=== PATIENT | female | born 1985 | race African-American/Black ===

== ENCOUNTER 2022-08-28 16:45 | Observation (INO) | payer BC, SELFPAY ==
[2022-08-28] VITALS (28 sets, daily range): BP systolic 174–241; BP diastolic 114–147; PULSE 79–102; RESP 10–38; O2SAT 95–100
--- NOTE | ~2022-08-28 | CT_ITS ---
EXAMINATION: CT brain wo con DATE: 08/28/2022 17:48 INDICATION: HTN, intermittent HAs . TECHNIQUE: Computed tomography (CT) of the head was performed without intravenous contrast. The mA wa s adjusted according to patient size. Iterative reconstruction technique was employed. The dose-lengt h product was 681.00 mGy-cm. COMPARISON: None. FINDINGS: No acute intracranial hemorrhage or extra-axial fluid collection. No hydrocephalus, mass, or herniation. No acute ischemic infarct. Unremarkable dural venous sinus attenuation. No acute osseous abnormality. The aerated spaces are clear. IMPRESSION: No acute intracranial process. Reviewed, dictated and finalized at location K. CIATE PASTOR
--- NOTE | ~2022-08-28 | CT_ITS ---
EXAMINATION: CTA chest PE protocol DATE: 08/28/2022 19:49 INDICATION: SOB with exertion X 3w, +dimer TECHNIQUE: Computed tomography angiography (CTA) of the chest was performed with 100 mL Omnipaque-350 intravenous contrast timed to evaluate the pulmonary arteries. Coronal maximum intensity projection 3D-reconstructions were created by the technologist. The dose-length product (DLP) was 956.04 mGy-cm. Automated exposure control and iterative reconstruction technique were employed. COMPARISON: X-ray chest, same date. FINDINGS: Lung parenchyma and airways: Graded dependent groundglass opacities bilaterally in the lungs. Mosaic attenuation in the bilateral lower lobes. Pleura: Unremarkable. Thoracic inlet, axillae and chest wall: Unremarkable. Thoracic aorta: Normal. Mediastinum: Normal. Heart and pericardium: Cardiomegaly. Coronary artery calcifications: Absent. Upper abdomen: No significant finding. Bones: No acute osseous finding. Pulmonary arteries: Study quality: Severe quantum mottle, beam hardening, and motion artifact signifi cantly limits the study. No central pulmonary emboli detected. IMPRESSION: 1. Limited examination, such that segmental emboli could be missed. No central pulmonary emboli detec lowell. 2. Pulmonary opacities may represent a combination of mild pulmonary edema and mosaic attenuation. Th e latter can be seen with asthma, bronchiolitis obliterans, hypersensitivity pneumonitis, and chronic thromboembolic disease. Reviewed, dictated and finalized at location K. NING DEVELOPMENT SPECIALIST IMPRESSION: 1. Limited examination, such that segmental emboli could be missed. No central pulmonary emboli detected. 2. Pulmonary opacities may represent a combination of mild pulmonary edema and mosaic attenuation. The latter can be seen with asthma, bronchiolitis obliteran s, hypersensitivity pneumonitis, and chronic thromboembolic disease.
--- NOTE | ~2022-08-28 | XR_ITS ---
EXAMINATION: XR chest 2V Exam Date/Time: 08/28/2022 18:50 GENERAL II FARMWORKER HISTORY: HTN, HODGES X 3 weeks Comparison: None available. RESULT: Lines, tubes, and devices: None. Lungs and pleura: Low volumes with crowding. Severely Limited lateral view. Cardiomediastinal silhouette: Marked cardiomegaly. Other: No acute osseous or upper abdominal finding. IMPRESSION: Nondiagnostic lateral view. Cardiomegaly. Reviewed, dictated and finalized at location K. RAL II FARMWORKER
--- NOTE | 2022-08-28 17:03 | ECG_ITS ---
Measurements Intervals [place] Rate: 97 P: 40 NV: 192 QRS: -2 QRSD: 101 T: 117 QT: 347 QTc: 442 Interpretive Statements SINUS RHYTHM POSSIBLE LEFT ATRIAL ENLARGEMENT [-0.1mV P-WAVE IN V1/V2] LEFT VENTRICULAR HYPERTROPHY AND ST-T CHANGE [VOLTAGE CRITERIA PLUS ST/T ABNORMALITY] NO PREVIOUS ECG AVAILABLE FOR COMPARISON Electronically Signed On 08-28-2022 19:50:08 UNDER PRESSER by Lisette Lange M.D.
--- NOTE | 2022-08-28 17:03 | ED.GENADULT ---
HPI - General Adult General Chief complaint: Recheck/Abnormal Lab/Rx <BESSY Harrison Last Filed: 08/28/22 23:32> Stated complaint: hypertension crisis <BESSY Harrison Last Filed: 08/28/22 23:32> Time Seen by Provider: 08/28/22 16:58 <BESSY Harrison Last Filed: 08/28/22 23:32> Source: patient <BESSY Harrison Last Filed: 08/28/22 23:32> Mode of arrival: ambulatory <BESSY Harrison Last Filed: 08/28/22 23:32> Limitations: no limitations <BESSY Harrison Last Filed: 08/28/22 23:32> History of Present Illness HPI narrative: Patient is a 37 y/o female who presents to the ED with c/o HTN. Patient reports she has had intermittent headaches and dyspnea with exertion over the last few weeks. She states the shortness of breath seems to be an acute change and she was unable to walk distances she used to be able to without becoming short of breath. She has been under a lot of increased stress recently. She made an appointment with her PCP today at which point her blood pressure was noted to be significantly elevated in the office. She was then referred to the ED for further evaluation. Patient does report a history of HTN and states she was on a water pill and another medication in the past, but she has not taken these over the last 3 months. She states she ran out and was stubborn. Per patient's med rec, patient has been on amlodipine, metoprolol, triamterene/hydrochlorothiazide previously. Patient also reports having intermittent mild lower extremity edema, denies any vision changes, dizziness, lightheadedness, chest pain, abdominal pain, nausea, vomiting, focal weakness, numbness, cough or cold symptoms. <BESSY Harrison Last Filed: 08/28/22 23:32> Related Data Allergies/adverse reactions: Allergies Allergy/AdvReac Type Severity Reaction Status Date / Time cat dander Allergy Other Verified 08/29/22 01:17 <Pia Luna PA-C - Last Filed: 08/28/22 23:32> Review of Systems Review of Systems: CONSTITUTIONAL: Denies fever, chills, or sweats. EYES: Denies visual changes. ENT: Denies rhinorrhea, congestion, sore throat. CARDIOVASCULAR: See HPI. RESPIRATORY: See HPI. GASTROINTESTINAL: Denies abdominal pain, nausea, vomiting, or diarrhea. GENITOURINARY: Denies dysuria or hematuria. NEUROLOGIC: See HPI. <Pia Luna PA-C - Last Filed: 08/28/22 23:32> All systems reviewed & are unremarkable except as noted in HPI and below <Pia Luna PA-C - Last Filed: 08/28/22 23:32> [facility] Past Medical History Medical History: Medical History Benign essential HTN Morbid (severe) obesity due to excess calories PIH ( induced hypertension) Weight gain <Pia Luna PA-C - Last Filed: 08/28/22 23:32> Surgical History Surgical History: Surgical History Hx of section <Pia Luna PA-C - Last Filed: 08/28/22 23:32> Family History Family History: Family History Grandparent Family history of elevated blood lipids Family history of type 2 diabetes mellitus Hypertension Heart attack Mother Heart disease [place] Hypertension Heart attack Type 1 diabetes Father Kidney failure History of kidney transplant Hypertension <Pia Luna PA-C - Last Filed: 08/28/22 23:32> Social History Social History: Social History Social History: Single Smoking status: Never smoker Second hand tobacco smoke exposure: No Alcohol intake: current Alcohol use details: occasionally Substance use: never Substance use type: does not use Lack of Transportation: No Lack of Food: Never True Current Housing: I
[2022-08-28 17:55] LABS: Basophils Percent Auto 0.3 % (0.2-1.2); Eosinophils Absolute Auto 0.2 K/mm3 (0-0.3); Eosinophils Percent Auto 2.1 % (0-4.4); Hematocrit 35.4 % (37.0-47.0); Hemoglobin 10.8 g/dL (12.0-15.0); Immature Granulocyte Absolute 0.03 K/mm3 (0.00-0.031); Immature Granulocyte Percent A 0.3 % (0-0.5); Immature Platelet Fraction Pct 18.5 % (0.9-11.2); Lymphocytes Absolute Auto 3.29 K/mm3 (0.9-3.2); Lymphocytes Percent Auto 32.3 % (18.3-44.2); Mean Corpuscular HGB Conc 30.5 g/dl (32-36); Mean Corpuscular Hemoglobin 24.4 pg (26-34); Mean Corpuscular Volume 79.9 fl (80-100); Monocytes Absolute Auto 0.7 K/mm3 (0.1-0.6); Monocytes Percent Auto 6.5 % (2.6-8.5); Neutrophils Percent Auto 58.5 % (45.5-73.1); Platelet Count Result 182 k/mm3 (150-375); Red Blood Count 4.43 M/mm3 (4.2-5.4); Red Cell Distribution Width 17.4 % (11.5-14.5); White Blood Count 10.2 K/mm3 (4.5-10.0)
[2022-08-28 18:00] LABS: Appearance Urine Clear (Clear); Bilirubin Urine Negative (Negative); Blood Urine Negative (Negative); Color Urine Yellow (Yellow); Glucose Urine UA Negative (Negative); Ketones Urine Negative (Negative); Leukocyte Esterase Ur Negative LEU/UL (Negative); Nitrate Urine Negative (Negative); Protein Urine 3+ mg/dL (Negative); Urobilinogen Urine 0.2 mg/dL (<2.0)
[2022-08-28 18:02] LABS: Prothrombin Time 13.2 Seconds (11.1-14.7)
[2022-08-28 18:03] LABS: Partial Thromboplastin Time 29.6 SECONDS (22.3-36.8)
[2022-08-28 18:07] LABS: Bacteria Urine Trace /hpf; Squamous Epithelial Cell Urine Occasional /hpf (Few); WBC Urine 0-3 /hpf
[2022-08-28 18:08] LABS: Add Urine Microscopic? YES
[2022-08-28 18:14] LABS: Alanine Aminotransferase 20 U/L (6-35); Albumin Level 4.3 g/dL (3.5-5.1); Alkaline Phosphatase 63 U/L (38-126); Anion Gap 6 mmol/L (8-16); Aspartate Amino Transferase 26 U/L (14-36); Bilirubin,Total 0.7 mg/dL (0.2-1.3); Blood Urea Nitrogen 22 mg/dL (7-17); Calcium 8.9 mg/dL (8.4-10.2); Carbon Dioxide 32 mmol/L (22-30); Chloride 101 mmol/L (98-107); Estimated CRCL calculation 86 ml/min; Estimated Glomerular Filt Rate 56; Glucose 88 mg/dL (65-110); Sodium 139 mmol/L (137-145)
[2022-08-28 18:25] LABS: NT Pro B Type Natriuretic Pept 317 pg/mL (19.9-100); Platelet Estimate Adequate (Adequate); Schistocytes None Seen (NORMAL); Troponin I < 0.012 ng/mL (0.000-0.034)
[2022-08-28 18:26] LABS: Anisocytosis 2+ (NORMAL); Hypochromasia 1+ (NORMAL)
[2022-08-28 18:28] LABS: Influenza A QL RT-PCR Negative (Negative); Influenza B QL RT-PCR Negative (Negative); SARS-CoV-2 RNA PCR Negative
[2022-08-28] MEDS: hydrALAZINE HCL 20 MG/ML VIAL 10 MG IV PUSH ×2 (19:10→20:30)
[2022-08-28 19:21] LABS: D Dimer 0.78 ug/mL (<0.48)
--- NOTE | 2022-08-28 22:01 | PM.IMHP ---
H&P: HPI History of Present Illness Date/Time: 08/28/22 22:01 Chief Complaint: 37 years old female with past medical history of hypertension patient complains of shortness of breath worsening with activity started few weeks ago worsening gradually it is associated with headache intermittent patient was having her blood pressure uncontrolled for the past 2 weeks patient was started on amlodipine metoprolol and diuretics without improvement in blood pressure patient lately undergoing a lot of stress at the ER patient was found to have elevated BNP mildly hypokalemia elevated creatinine 1.3 hypertensive urgency associated with acute CHF exacerbation patient was started on IV diuretics potassium was replaced check magnesium patient will be admitted to the hospital for evaluation and treatment of hypertensive urgency acute renal failure acute hypokalemia acute CHF exacerbation Patient has significant family history of CHF her dad has CHF and ESRD patient dad was diagnosed with genetic kidney disease that lead to her that starting dialysis Review of Systems Review of Systems: 12 system review was done negative except above PMFSH Past Medical History Medical History Benign essential HTN Morbid (severe) obesity due to excess calories PIH ( induced hypertension) Weight gain Surgical History Surgical History Hx of section Family History Family History Grandparent Hypertension Family history of elevated blood lipids Family history of type 2 diabetes mellitus History of blood clots Breast cancer Mother Hypertension Family history of type 2 diabetes mellitus Heart disease CT Father Hypertension Kidney failure History of kidney transplant Social History Social History Social History: Single Smoking status: Never smoker Second hand tobacco smoke exposure: No Alcohol intake: current Alcohol use details: occasionally Substance use: never Substance use type: does not use Living arrangements: with family Occupation/Education: occupation Gender identity (if verbalized by the patient): Female Sexual Orientation (if Verbalized by the Patient): Straight or Heterosexual Meds Home Medications and Allergies Home Medications Medication Instructions Recorded Confirmed Type triamterene 37.5 1 tablet PO QAM #90 tabs 05/12/20 08/28/22 Rx mg-hydrochlorothiazide 25 mg tablet (Maxzide-25mg) amlodipine 10 mg tablet 10 mg PO DAILY #30 tabs 02/18/22 08/28/22 Rx metoprolol succinate 25 mg 25 mg PO DAILY #30 tabs 02/18/22 08/28/22 Rx tablet,extended release 24 hr Allergies Allergy/AdvReac Type Severity Reaction Status Date / Time No Known Allergies Allergy Unverified 08/28/22 16:00 Vital Signs Vital Signs - 24 hr 08/28/22 16:59 08/28/22 19:00 08/28/22 19:10 Pulse Rate 86 84 Respiratory Rate 20 28 H Blood Pressure 241/143 H 215/147 H Pulse Oximetry 95 99 Oxygen Delivery Room Air 08/28/22 19:13 08/28/22 19:15 08/28/22 19:30 Pulse Rate 83 81 86 Respiratory Rate 24 H 24 H 22 H Blood Pressure Pulse Oximetry 98 97 98 Oxygen Delivery 08/28/22 19:57 08/28/22 20:00 08/28/22 20:05 Pulse Rate 90 92 93 Respiratory Rate 18 25 H 23 H Blood Pressure 206/143 H Pulse Oximetry 99 Oxygen Delivery 08/28/22 20:15 08/28/22 20:30 08/28/22 20:31 Pulse Rate 93 95 86 Respiratory Rate 25 H 25 H 31 H Blood Pressure 233/131 H Pulse Oximetry 97 95 Oxygen Delivery 08/28/22 20:32 08/28/22 20:45 08/28/22 20:46 Pulse Rate 90 84 90 Respiratory Rate 27 H 25 H 23 H Blood Pressure 218/133 H 179/114 H Pulse Oximetry 97 Oxygen Delivery 08/28/22 21:00 Pulse Rate 87 Respiratory Rate 21 H Blood
[2022-08-28] MEDS: amLODIPine BESYLATE 5 MG TABLET 10 MG PO (22:54)
[2022-08-28] MEDS: carvediloL 12.5 MG TABLET PO (22:55)
[2022-08-29] VITALS (10 sets, daily range): BP systolic 136–186; BP diastolic 78–125; PULSE 71–97; RESP 14–26; TEMP 35.9–36.3; O2SAT 95–100; BMI 67.1
--- NOTE | 2022-08-29 00:27 | ADMGEN ---
This patient, Casi Perez, was admitted to 3 [facility] Surg Room 309-01. Patient/family oriented to hospital policies and general routines including ID bracelet, bed and alarms, visiting hours, pain management, procedures, bathroom and other care routines, personal items, smoking policy, room service/diet, and visiting hours. Information on how to activate the Rapid Response Team has been discussed. Patient/Family are encouraged to report perceived risks to care and to ask questions if they do not understand what they are told or what they should do.
[2022-08-29 00:34] LABS: Creatine Kinase 91 U/L (30-135)
[2022-08-29 00:47] LABS: Troponin I < 0.012 ng/mL (0.000-0.034)
[2022-08-29] MEDS: POTASSIUM CHLORIDE 20 MEQ TABLET 40 MEQ PO ×2 (00:49→04:10)
[2022-08-29 06:08] LABS: Basophils Percent Auto 0.3 % (0.2-1.2); Eosinophils Absolute Auto 0.1 K/mm3 (0-0.3); Eosinophils Percent Auto 1.2 % (0-4.4); Hematocrit 35.6 % (37.0-47.0); Hemoglobin 10.6 g/dL (12.0-15.0); Immature Granulocyte Absolute 0.03 K/mm3 (0.00-0.031); Immature Granulocyte Percent A 0.3 % (0-0.5); Immature Platelet Fraction Pct 17.7 % (0.9-11.2); Lymphocytes Absolute Auto 1.95 K/mm3 (0.9-3.2); Lymphocytes Percent Auto 20.1 % (18.3-44.2); Mean Corpuscular HGB Conc 29.8 g/dl (32-36); Mean Corpuscular Hemoglobin 24.3 pg (26-34); Mean Corpuscular Volume 81.5 fl (80-100); Mean Platelet Volume 12.7 fl (7.4-10.4); Monocytes Absolute Auto 0.6 K/mm3 (0.1-0.6); Monocytes Percent Auto 6.6 % (2.6-8.5); Neutrophils Absolute Auto 6.9 K/mm3 (1.3-6.7); Neutrophils Percent Auto 71.5 % (45.5-73.1); Platelet Count Result 202 k/mm3 (150-375); Red Blood Count 4.37 M/mm3 (4.2-5.4); Red Cell Distribution Width 17.5 % (11.5-14.5); White Blood Count 9.7 K/mm3 (4.5-10.0)
[2022-08-29 06:18] LABS: Alanine Aminotransferase 18 U/L (6-35); Albumin Level 4.1 g/dL (3.5-5.1); Alkaline Phosphatase 52 U/L (38-126); Anion Gap 4 mmol/L (8-16); Aspartate Amino Transferase 23 U/L (14-36); Bilirubin,Total 0.7 mg/dL (0.2-1.3); Blood Urea Nitrogen 17 mg/dL (7-17); Calcium 8.8 mg/dL (8.4-10.2); Carbon Dioxide 29 mmol/L (22-30); Chloride 100 mmol/L (98-107); Estimated CRCL calculation 93 ml/min; Estimated Glomerular Filt Rate > 60; Glucose 102 mg/dL (65-110); Potassium 3.4 mmol/L (3.4-5.0); Sodium 133 mmol/L (137-145)
[2022-08-29 06:29] LABS: Troponin I < 0.012 ng/mL (0.000-0.034)
[2022-08-29 06:44] LABS: Anisocytosis 1+ (NORMAL); Hypochromasia 1+ (NORMAL); Platelet Estimate Adequate (Adequate); Schistocytes None Seen (NORMAL)
[2022-08-29] MEDS: amLODIPine BESYLATE 5 MG TABLET 10 MG PO (09:24)
[2022-08-29] MEDS: FUROSEMIDE INJ 40 MG/4 ML VIAL IV PUSH ×2 (09:24→17:48)
[2022-08-29] MEDS: POTASSIUM CHLORIDE 20 MEQ TABLET.ER PO (09:24)
[2022-08-29] MEDS: FAMOTIDINE 20 MG TABLET PO ×2 (09:25→20:47)
[2022-08-29] MEDS: ENOXAPARIN 40 MG/0.4 ML SYRINGE SUB-Q (09:25)
[2022-08-29] MEDS: METOPROLOL SUCCINATE EXT REL 25 MG TABCR PO (09:25)
--- NOTE | 2022-08-29 11:26 | PM.CNCAR ---
Assessment and Plan Assessment and plan (1) Hypertensive urgency: Code(s): I16.0 - Hypertensive urgency Status: Acute (2) Uncontrolled hypertension: Code(s): I10 - Essential (primary) hypertension Status: Acute (3) General patient noncompliance: Code(s): Z91.19 - Patient's noncompliance with other medical treatment and regimen Status: Acute (4) BMI 60.0-69.9, adult: Code(s): Z68.44 - Body mass index [BMI] 60.0-69.9, adult Status: Acute (5) GERMAIN (acute kidney injury): Code(s): N17.9 - Acute kidney failure, unspecified Status: Acute Plan Continue with intermittent IV Lasix for now. Still needs BP control. Agree with Amlodipine 10mg QD. On beta-marco, however this is not a great choice for hypertension. I will stop it. Start Lisinopril and Aldactone. May see a slight SCr bump with this. Continue with PRN Hydralazine. TTE has been ordered, will follow up on results. History of Present Illness History of Present Illness Consult date/time: 08/29/22 11:26 Requesting physician: Nani Art M.A., MD Consult reason: hypertension Reason For Visit: Hypertensive Urgency,HODGES,Mild CHF Narrative: This is a 37-year-old female with a history of morbid obesity and hypertension who presented with dyspnea on exertion, intermittent headaches. Was seen at her PCP's office, where they noted blood pressure to be significantly high and then sent to the ED for further evaluation. Patient reports that she was out of her blood pressure medications for sometime and even when she did have them, she was noncompliant with them. ER workup showed GERMAIN with SCr of 1.3, now improved to 1.2 Troponins negative x 3. BNP 317. EKG with sinus rhythm with LVH with secondary repolarization abnormalities. Review of Systems Review of Systems: 12 point ROS obtained. Negative, unless stated in HPI. [facility] Past Medical History Medical History Benign essential HTN Morbid (severe) obesity due to excess calories PIH ( induced hypertension) Weight gain Surgical History Surgical History Hx of section Family History Family History Grandparent Family history of elevated blood lipids Family history of type 2 diabetes mellitus Hypertension Heart attack Mother Heart disease [place] Hypertension Heart attack Type 1 diabetes Father Kidney failure History of kidney transplant Hypertension Social History Social History Social History: Single Smoking status: Never smoker Second hand tobacco smoke exposure: No Alcohol intake: current Alcohol use details: occasionally Substance use: never Substance use type: does not use Lack of Transportation: No Lack of Food: Never True Current Housing: I Have Housing Concerned About Future Housing: No Difficulty Paying Gas/Electric Bills: No Difficulty Paying for Meds: No Currently Unemployed: No Education: Bachelor's Degree Difficulty w/ Childcare or Family Care: No Living arrangements: with family Occupation/Education: occupation Gender identity (if verbalized by the patient): Female Sexual Orientation (if Verbalized by the Patient): Straight or Heterosexual Spiritual care concerns: No Meds Home Medications and Allergies Home Medications Medication Instructions Recorded Confirmed Type triamterene 37.5 1 tablet PO QAM #90 tabs 05/12/20 08/29/22 Rx mg-hydrochlorothiazide 25 mg tablet (Maxzide-25mg) amlodipine 10 mg tablet 10 mg PO DAILY #30 tabs 02/18/22 08/29/22 Rx metoprolol succinate 25 mg 25 mg PO DAILY 08/29/22 08/29/22 History tablet,extended release 24 hr Allergies Allergy/AdvReac Type Severity Reaction Status Date / Time cat dander All
[2022-08-29] MEDS: lisinopriL 20 MG TABLET PO (12:44)
[2022-08-29] MEDS: SPIRONOLACTONE 12.5 MG TABLET PO (12:44)
--- NOTE | 2022-08-29 15:58 | P.PNIM_ITS ---
Progress Note: A&P Assessment and Plan (1) Hypertensive urgency: Code(s): I16.0 - Hypertensive urgency Status: Acute Assessment and Plan: blood pressure is markedly elevated up to 246/138 on presentation. * Patient reports noncompliance to her antihypertensive regimen * likely worsened due to volume overload * BP improving at appropriate rate. Last BP 177/117 * appreciate cardiology consultation * continue home amlodipine * home metoprolol succinate has been discontinued * has been started on lisinopril and spironolactone per Cardiology recommendations * continue with IV diuresis * hold home triamterene -hydrochlorothiazide while patient is on furosemide * monitor BP trends closely (2) Acute renal failure: Code(s): N17.9 - Acute kidney failure, unspecified Status: Acute Assessment and Plan: creatinine elevated to 1.3 on admission * may be due to uncontrolled hypertension/ hypertensive urgency * Creatinine down to 1.2 today continue to monitor * continue with cautious diuresis * monitor BMP * consider renal ultrasound if no improvement (3) Shortness of breath: Code(s): R06.02 - Shortness of breath Status: Acute Assessment and Plan: patient was shortness of breath and dyspnea on exertion for several weeks. * CTA revealed pulmonary opacities which is likely due to mild pulmonary edema and CXR shows cardiomegaly * BNP only 317, unremarkable * continue with IV furosemide at this time * echocardiogram completed today with results pending * troponin negative * shortness of breath is markedly improved today (4) Acute hypokalemia: Code(s): E87.6 - Hypokalemia Status: Acute Assessment and Plan: resolved. Potassium 3.4 today * likely due to diuresis * will be in scheduled potassium 20 mEq daily. Adjust as needed Subjective Date/time seen: 08/29/22 15:58 Interval history: date of service: 08/29/2022 Casi Perez is a 37-year-old female with a history of morbid obesity and uncontrolled hypertension who is seen in follow-up for hypertensive urgency and acute kidney injury. Patient states that she has had HODGES for several months. She does endorse shortness of breath today. She has been able to get up and ambulate to and from the restroom. She feels that shortness of breath is i mproved with this activity, though she still gets winded after completing the trip. She does have a mild headache but this has improved. She endorses sinus congestion. She denies pain in her chest. Denies palpitations. Feels her lower extremity swelling has nearly resolved. She endorses urinary frequency secondary to Lasix. Denies dysuria or hematuria. She has no additional concerns Review of Systems Review of Systems: All systems reviewed & are unremarkable except as noted in HPI and below Exam Narrative: General: obese, well-appearing 37-year-old female, sitting up in bed, comfortable, NARD Neuro: awake, alert and oriented x4, speech clear, no focal neuro deficits noted HEENMT: normocephalic, atraumatic, EOMI, sclerae anicteric, moist oral mucosa Respiratory: clear to auscultation bilaterally, nonlabored breathing Cardio: regular rate, regular rhythm with S1-S2 Abdomen: obese, normoactive bowel sounds, soft, nontender to palpation Extremities: trace edema, no erythema or tenderness to palpation, DP pulses 2+ bilaterally Skin: no rashes or lesions, warm and dry Psych: appropriate mood and affect, judgment and insight i
--- NOTE | 2022-08-29 15:58 | PM.IMPN ---
Progress Note: A&P Assessment and Plan (1) Hypertensive urgency: Code(s): I16.0 - Hypertensive urgency Status: Acute Assessment and Plan: blood pressure is markedly elevated up to 246/138 on presentation. Patient reports noncompliance to her antihypertensive regimen likely worsened due to volume overload BP improving at appropriate rate. Last BP 177/117 appreciate cardiology consultation continue home amlodipine home metoprolol succinate has been discontinued has been started on lisinopril and spironolactone per Cardiology recommendations continue with IV diuresis hold home triamterene -hydrochlorothiazide while patient is on furosemide monitor BP trends closely (2) Acute renal failure: Code(s): N17.9 - Acute kidney failure, unspecified Status: Acute Assessment and Plan: creatinine elevated to 1.3 on admission may be due to uncontrolled hypertension/ hypertensive urgency Creatinine down to 1.2 today continue to monitor continue with cautious diuresis monitor BMP consider renal ultrasound if no improvement (3) Shortness of breath: Code(s): R06.02 - Shortness of breath Status: Acute Assessment and Plan: patient was shortness of breath and dyspnea on exertion for several weeks. CTA revealed pulmonary opacities which is likely due to mild pulmonary edema and CXR shows cardiomegaly BNP only 317, unremarkable continue with IV furosemide at this time echocardiogram completed today with results pending troponin negative shortness of breath is markedly improved today (4) Acute hypokalemia: Code(s): E87.6 - Hypokalemia Status: Acute Assessment and Plan: resolved. Potassium 3.4 today likely due to diuresis will be in scheduled potassium 20 mEq daily. Adjust as needed Subjective Date/time seen: 08/29/22 15:58 Interval history: date of service: 08/29/2022 Casi Perez is a 37-year-old female with a history of morbid obesity and uncontrolled hypertension who is seen in follow-up for hypertensive urgency and acute kidney injury. Patient states that she has had HODGES for several months. She does endorse shortness of breath today. She has been able to get up and ambulate to and from the restroom. She feels that shortness of breath is improved with this activity, though she still gets winded after completing the trip. She does have a mild headache but this has improved. She endorses sinus congestion. She denies pain in her chest. Denies palpitations. Feels her lower extremity swelling has nearly resolved. She endorses urinary frequency secondary to Lasix. Denies dysuria or hematuria. She has no additional concerns Review of Systems Review of Systems: All systems reviewed & are unremarkable except as noted in HPI and below Exam Narrative: General: obese, well-appearing 37-year-old female, sitting up in bed, comfortable, NARD Neuro: awake, alert and oriented x4, speech clear, no focal neuro deficits noted HEENMT: normocephalic, atraumatic, EOMI, sclerae anicteric, moist oral mucosa Respiratory: clear to auscultation bilaterally, nonlabored breathing Cardio: regular rate, regular rhythm with S1-S2 Abdomen: obese, normoactive bowel sounds, soft, nontender to palpation Extremities: trace edema, no erythema or tenderness to palpation, DP pulses 2+ bilaterally Skin: no rashes or lesions, warm and dry Psych: appropriate mood and affect, judgment and insight intact Objective Data Vital Signs Vital Signs: Vital Signs - 24 hr 08/28/22 16:59 08/28/22 19:00 08/28/22 19:10 Temperature Pulse Rate 86 84 Respiratory Rate 20 28 H Blood Pressure 241/143 H 215/147 H Pulse Oximetry 95 99 Oxygen Delivery Room Air 08/28/22 19:13 08/28/22 19:15 08/28/22 19:30 Temperature Pulse Rate 83 81 86 Respiratory Rate 24 H 24 H 22 H Blood Pressure Pulse Oximetry 98 97
--- NOTE | 2022-08-29 21:58 | ECHO_ITS ---
Patient Info Name: Casi Perez Age: 37 years : 1985 Gender: Female Ht: 64 in Wt: 391 lbs BSA: 2.96 m2 HR: 79 bpm BP: 154 / 102 mmHg Heart Rhythm: Sinus Rhythm Technical Quality: Good Exam Date: 08/29/2022 10:44 AM Exam Location: [facility] Patient Status: Outpatient Admit Date: 08/28/2022 Staff Ordering Physician: Nani Art M.A., MD [employer] Operator: Buffy Dunn RDCS Attending Provider: Jaclyn Rivera PA-C Referring Physician: Chris SHEN; Exam Type: CA echo doppler color flow Study Info Indications R06.02 - Shortness of breath Complete two-dimensional, color flow and Doppler transthoracic echocardiogram is performed. Summary 1. Complete two-dimensional, color flow and Doppler transthoracic echocardiogram is performed. 2. Left ventricular chamber dimension is normal. 3. Left ventricular systolic function is normal, estimated at 55-60%. 4. There is severely increased left ventricular wall thickness. 5. The left ventricular diastolic function is grade II diastolic dysfunction. 6. Global longitudinal strain is abnormal at -10 %. 7. Right ventricular systolic function is normal. 8. Left atrial chamber dimension is moderately enlarged. 9. Right atrial chamber dimension is mildly enlarged. 10. There is mild mitral valve regurgitation. 11. There is trivial pericardial effusion. Left Ventricle Left ventricular chamber dimension is normal. Left ventricular systolic function is normal, estimated at 55-60%. There is severely increased left ventricular wall thickness. The left ventricular diastolic function is grade II diastolic dysfunction. Global longitudinal strain is abnormal at -10 %. Right Ventricle Right ventricular chamber dimension is normal. Right ventricular systolic function is normal. Left Atria Left atrial chamber dimension is moderately enlarged. Right Atria Right atrial chamber dimension is mildly enlarged. Atrial Septum Intact interatrial septum visualized by color flow imaging. Aortic Valve The aortic valve is not well visualized. There is no aortic valve stenosis. There is no aortic valve regurgitation. Pulmonic Valve The pulmonic valve is not well visualized. Mitral Valve The mitral valve has normal leaflets. There is no mitral valve stenosis. There is mild mitral valve regurgitation. Tricuspid Valve There is trace tricuspid valve regurgitation. Pericardium/Pleural There is trivial pericardial effusion. Aorta The aortic root size at the sinus of Valsalva is normal. Left Ventricular Outflow Tract Name Value Normal LVOT 2D LVOT Diameter 2.0 cm LVOT Doppler LVOT Peak Gradient 4 mmHg LVOT Mean Gradient 3 mmHg LVOT VTI 19 cm LVOT VTI/AV VTI Ratio 0.8 LVOT Stroke Volume 58 ml LVOT CO 4.4 l/min LVOT CI 1.5 l/min/m2 Pulmonic Valve
[2022-08-30] VITALS: PULSE 73
[2022-08-30 04:00] VITALS: PULSE 69
[2022-08-30 05:41] VITALS: BP 153/77; PULSE 66; RESP 14; TEMP 36.4; O2SAT 97
[2022-08-30 07:30] LABS: Basophils Percent Auto 0.4 % (0.2-1.2); Eosinophils Absolute Auto 0.2 K/mm3 (0-0.3); Eosinophils Percent Auto 2.4 % (0-4.4); Hemoglobin 10.5 g/dL (12.0-15.0); Immature Granulocyte Absolute 0.03 K/mm3 (0.00-0.031); Immature Granulocyte Percent A 0.4 % (0-0.5); Immature Platelet Fraction Pct 17.6 % (0.9-11.2); Lymphocytes Absolute Auto 1.99 K/mm3 (0.9-3.2); Mean Corpuscular Hemoglobin 23.9 pg (26-34); Mean Corpuscular Volume 79.5 fl (80-100); Monocytes Absolute Auto 0.6 K/mm3 (0.1-0.6); Monocytes Percent Auto 7.3 % (2.6-8.5); Neutrophils Absolute Auto 5.2 K/mm3 (1.3-6.7); Neutrophils Percent Auto 64.5 % (45.5-73.1); Platelet Count Result 182 k/mm3 (150-375); Red Cell Distribution Width 17.3 % (11.5-14.5)
[2022-08-30 07:43] LABS: Alanine Aminotransferase 17 U/L (6-35); Albumin Level 4.1 g/dL (3.5-5.1); Alkaline Phosphatase 43 U/L (38-126); Anion Gap 4 mmol/L (8-16); Aspartate Amino Transferase 27 U/L (14-36); Bilirubin,Total 0.7 mg/dL (0.2-1.3); Blood Urea Nitrogen 17 mg/dL (7-17); Calcium 8.5 mg/dL (8.4-10.2); Carbon Dioxide 29 mmol/L (22-30); Chloride 100 mmol/L (98-107); Estimated CRCL calculation 86 ml/min; Estimated Glomerular Filt Rate 56; Glucose 86 mg/dL (65-110); Potassium 3.3 mmol/L (3.4-5.0); Sodium 133 mmol/L (137-145)
[2022-08-30 08:00] VITALS: PULSE 66
[2022-08-30] MEDS: SPIRONOLACTONE 12.5 MG TABLET PO (08:01)
[2022-08-30] MEDS: amLODIPine BESYLATE 5 MG TABLET 10 MG PO (08:01)
[2022-08-30] MEDS: FUROSEMIDE INJ 40 MG/4 ML VIAL IV PUSH (08:02)
[2022-08-30] MEDS: lisinopriL 20 MG TABLET PO (08:02)
[2022-08-30] MEDS: ENOXAPARIN 40 MG/0.4 ML SYRINGE SUB-Q (08:02)
[2022-08-30] MEDS: FAMOTIDINE 20 MG TABLET PO (08:02)
[2022-08-30] MEDS: POTASSIUM CHLORIDE 20 MEQ TABLET.ER PO (08:02)
[2022-08-30] MEDS: POTASSIUM CHLORIDE 20 MEQ TABLET PO (09:18)
--- NOTE | 2022-08-30 11:27 | PM.PNCARD ---
Progress Note: A&P Assessment and Plan (1) Hypertensive urgency: Code(s): I16.0 - Hypertensive urgency Status: Acute (2) Uncontrolled hypertension: Code(s): I10 - Essential (primary) hypertension Status: Acute (3) General patient noncompliance: Code(s): Z91.19 - Patient's noncompliance with other medical treatment and regimen Status: Acute (4) BMI 60.0-69.9, adult: Code(s): Z68.44 - Body mass index [BMI] 60.0-69.9, adult Status: Acute (5) GERMAIN (acute kidney injury): Code(s): N17.9 - Acute kidney failure, unspecified Status: Acute Plan BP not at goal but improved significantly. Will increase spironolactone to 25mg daily. Continue Amlodipine 10mg QD. Continue lisinopril 20mg daily Echo showed normal LVSF, grade II diastolic noncompliance, CANDELARIO Discussed importance of weight loss for management of her diastolic HF as well as ongoing BP management. Will refer her to bariatric surgery clinic after OV in our office. Subjective Date/time seen: 08/30/22 11:27 Cardiology follow up for HTN Patient is feeling well this morning and has no complaints. She denies any shortness of breath. Eager to go home. Review of Systems Review of Systems: All systems reviewed & are unremarkable except as noted in HPI and below Exam Const: General: comfortable and no acute distress Other: Morbidly obese AA female sitting on the couch in her room HENMT: Mouth: Yes moist mucous membranes Eyes: General: appearance normal, both eyes and all related structures Sclera: sclerae normal Neck: Neck: supple Resp: Effort & Inspection: normal respiratory effort Auscultation: diminished lung sounds Cardio: Rate: regular rate Rhythm: regular rhythm Heart sounds: no murmurs Skin: General skin exam: normal color Neuro: Speech: normal speech Extrem: General: normal to inspection Psych: Mental Status: mental status grossly normal Affect: normal affect Objective Data Vital Signs Vital Signs: Vital Signs - 24 hr 08/29/22 12:00 08/29/22 15:11 08/29/22 16:00 Temperature Pulse Rate 75 82 Respiratory Rate Blood Pressure 165/101 H Pulse Oximetry Oxygen Delivery 08/29/22 22:00 08/29/22 20:00 08/30/22 00:00 Temperature 36.1 C L Pulse Rate 79 71 73 Respiratory Rate 14 Blood Pressure 136/78 Pulse Oximetry 97 Oxygen Delivery 08/30/22 04:00 08/30/22 05:41 08/30/22 08:00 Temperature 36.4 C L Pulse Rate 69 66 Respiratory Rate 14 Blood Pressure 153/77 H Pulse Oximetry 97 Oxygen Delivery Room Air 08/30/22 08:00 Temperature Pulse Rate 66 Respiratory Rate Blood Pressure Pulse Oximetry Oxygen Delivery Intake/Output Intake/Output: Intake & Output 08/27/22 08/28/22 08/29/22 08/30/22 23:59 23:59 23:59 23:59 Intake Total 1424 500 Output Total 100 600 Balance 1324 -100 Meds/Results Medications: Active Medications Generic Name Dose Route Start Last Admin Trade Name Freq PRN Reason Stop Dose Admin Acetaminophen 650 mg 08/28/22 21:58 Acetaminophen 325 Mg Tablet PO Q6H PRN Moderate pain Hydrocodone Bitart/Acetaminophen 1 tab 08/28/22 21:58 Hydrocodone/Acetaminophen (*Crx) 5-325 Mg Tablet PO Q6H PRN Pain Rated 4-6 Amlodipine Besylate 10 mg 08/29/22 09:00 08/30/22 08:01 Amlodipine Besylate 5 Mg Tablet PO 10 mg DAILY WILLIE Administration Enoxaparin Sodium 40 mg 08/29/22 09:00 08/30/22 08:02 Enoxaparin 40 Mg/0.4 Ml Syringe SUB-Q 40 mg DAILY WILLIE Administration Famotidine 20 mg 08/29/22 09:00 08/30/22 08:02 Famotidine 20 Mg Tablet PO 20 mg Q12HR WILLIE Administration Furosemide 40 mg 08/29/22 09:00 08/30/22 08:02 Furosemide Inj 40 Mg/4 Ml Vial IV PUSH 40 mg BID WILLIE Administration Hydralazine HCl 20 mg 08/28/22 21:58 Hydralazine Hcl 20 Mg/Ml Vial IV PUSH Q6H PRN Hypertension Lisinopril 20 mg 08/29/22 1
--- NOTE | 2022-08-30 13:17 | P.DS_ITS ---
DS: Admitting Diagnosis Discharge Date 08/30/22 Admitting Diagnosis Hypertensive urgency DS: Discharge Diagnosis Discharge Diagnosis (1) Hypertensive urgency: Code(s): I16.0 - Hypertensive urgency Status: Acute Assessment and Plan: blood pressure was markedly elevated up to 246/138 on presentation. * Patient reports noncompliance to her antihypertensive regimen * Patient was seen in consultation by Cardiology who assisted in blood pressure management * She was continued on her home amlodipine 10 mg daily which she reports she had not been taking for over 3 months * Started on lisinopril 20 mg daily and spironolactone 25 mg daily per Cardiology recommendation * Blood pressure improved at appropriate rate * Patient's home metoprolol succinate and triamterene-hydrochlorothiazide was discontinued. Pt had not been taking these * Instructed to monitor blood pressures at home and follow-up PCP in 1 week * She will follow-up with cardiology as an outpatient (2) Acute renal failure: Code(s): N17.9 - Acute kidney failure, unspecified Status: Acute Assessment and Plan: Creatinine elevated to 1.3 on admission * likely due to uncontrolled hypertension/ hypertensive urgency * suspect slight elevation with addition of lisinopril and spironolactone * patient to repeat BMP in 1 week to ensure creatinine remaining stable (3) Shortness of breath: Code(s): R06.02 - Shortness of breath Status: Acute Assessment and Plan: patient presented with shortness of breath and dyspnea on exertion for several weeks. * CTA revealed pulmonary opacities which is likely due to mild pulmonary edema and CXR showed cardiomegaly * BNP only 317, unremarkable * Echocardiogram completed during admission with normal EF 55-60% with grade 2 diastolic dysfunction * Patient was diuresed with IV Lasix during admission and was euvolemic following this * Dyspnea resolved * Troponins negative (4) Diastolic dysfunction: Code(s): I51.89 - Other ill-defined heart diseases Status: Acute Assessment and Plan: As above (5) Acute hypokalemia: Code(s): E87.6 - Hypokalemia Status: Acute Assessment and Plan: Resolved. * Likely secondary to diuresis * Potassium levels normalized with supplementation * No ongoing potassium supplementation require as patient has been started on spironolactone DS: Summary Hospital Course Hospital Course: Date of admission: 08/28/2022 Date of discharge: 08/30/2022 Casi Perez is a 37-year-old female with a history of morbid obesity and uncontrolled hypertension who presented to the emergency department on 08/30/2022 under the direction of her primary care provider as her blood pressure was noted to be markedly elevated in the office. Patient had been having headaches for several weeks. She had been off of her antihypertensives for approximately 3 months due to not refilling her prescription. On presentation to the ED, her blood pressure was 241/143 with additional vital signs stable, potassium 3.0, creatinine 1.3, troponin negative, BNP 317, TSH w ithin normal limits, head CT with no acute findings, CXR with cardiomegaly, and chest CTA was negative for central pulmonary emboli with mild pulmonary edema. She was admitted to the hospitalist service for further evaluation management was seen in consultation by cardiology. Please see above for further details. Patient's blood pressure improved at appropriate rate with initiation of antihypertensive regimen. Chucho
--- NOTE | 2022-08-30 13:17 | PM.DS ---
DS: Admitting Diagnosis Discharge Date 08/30/22 Admitting Diagnosis Hypertensive urgency DS: Discharge Diagnosis Discharge Diagnosis (1) Hypertensive urgency: Code(s): I16.0 - Hypertensive urgency Status: Acute Assessment and Plan: blood pressure was markedly elevated up to 246/138 on presentation. Patient reports noncompliance to her antihypertensive regimen Patient was seen in consultation by Cardiology who assisted in blood pressure management She was continued on her home amlodipine 10 mg daily which she reports she had not been taking for over 3 months Started on lisinopril 20 mg daily and spironolactone 25 mg daily per Cardiology recommendation Blood pressure improved at appropriate rate Patient's home metoprolol succinate and triamterene-hydrochlorothiazide was discontinued. Pt had not been taking these Instructed to monitor blood pressures at home and follow-up PCP in 1 week She will follow-up with cardiology as an outpatient (2) Acute renal failure: Code(s): N17.9 - Acute kidney failure, unspecified Status: Acute Assessment and Plan: Creatinine elevated to 1.3 on admission likely due to uncontrolled hypertension/ hypertensive urgency suspect slight elevation with addition of lisinopril and spironolactone patient to repeat BMP in 1 week to ensure creatinine remaining stable (3) Shortness of breath: Code(s): R06.02 - Shortness of breath Status: Acute Assessment and Plan: patient presented with shortness of breath and dyspnea on exertion for several weeks. CTA revealed pulmonary opacities which is likely due to mild pulmonary edema and CXR showed cardiomegaly BNP only 317, unremarkable Echocardiogram completed during admission with normal EF 55-60% with grade 2 diastolic dysfunction Patient was diuresed with IV Lasix during admission and was euvolemic following this Dyspnea resolved Troponins negative (4) Diastolic dysfunction: Code(s): I51.89 - Other ill-defined heart diseases Status: Acute Assessment and Plan: As above (5) Acute hypokalemia: Code(s): E87.6 - Hypokalemia Status: Acute Assessment and Plan: Resolved. Likely secondary to diuresis Potassium levels normalized with supplementation No ongoing potassium supplementation require as patient has been started on spironolactone DS: Summary Hospital Course Hospital Course: Date of admission: 08/28/2022 Date of discharge: 08/30/2022 Casi Perez is a 37-year-old female with a history of morbid obesity and uncontrolled hypertension who presented to the emergency department on 08/30/2022 under the direction of her primary care provider as her blood pressure was noted to be markedly elevated in the office. Patient had been having headaches for several weeks. She had been off of her antihypertensives for approximately 3 months due to not refilling her prescription. On presentation to the ED, her blood pressure was 241/143 with additional vital signs stable, potassium 3.0, creatinine 1.3, troponin negative, BNP 317, TSH within normal limits, head CT with no acute findings, CXR with cardiomegaly, and chest CTA was negative for central pulmonary emboli with mild pulmonary edema. She was admitted to the hospitalist service for further evaluation management was seen in consultation by cardiology. Please see above for further details. Patient's blood pressure improved at appropriate rate with initiation of antihypertensive regimen. Patient will begin amlodipine 10 mg daily, spironolactone 25 mg daily, and lisinopril to 20 mg daily. Echocardiogram completed during admission which was unremarkable. She will follow-up with cardiology as an outpatient. Creatinine remained consistent, ranging from 1.2-1.3. This is likely due to diuresis during admission plus the addition of lisinopril and spironolactone. Patient will repeat BMP in 1 week t
== END 2022-08-30 15:35 | disposition home or self-care (01) ==
LOC: ANHED 17:02 → ANH3MEDSUR 23:32
PROVIDERS: Admitting Provider Internal Medicine; Emergency Provider Physician Assistant; PCP Family Medicine; Visit Provider Physician Assistant
DX: I16.0 Hypertensive urgency (principal); N17.9 Acute kidney failure, unspecified; E87.6 Hypokalemia; I51.89 Other ill-defined heart diseases; R06.02 Shortness of breath; E66.01 Morbid (severe) obesity due to excess calories; Z68.44 Body mass index [BMI] 60.0-69.9, adult; Z91.199 Patient's noncompliance with other medical treatment and regimen due to unspecified reason; Z20.822 Contact with and (suspected) exposure to COVID-19
CPT/HCPCS: 36415; 70450; 71046; 71275; 80053; 81001; 81025; 82550; 83735; 83880; 84443; 84484; 85025; 85055; 85380; 85610; 85730; 87636; 93005; 93306; 96372; 96374; 96375; 96376; 99285; A9270; G0378; J0360; J1650; J1940; Q9967